=== PATIENT | female | born 1940 | race Caucasian/White ===

== ENCOUNTER 2017-06-14 18:44 | Inpatient (IN) | payer OTHER ==
[~2017-06-14] VITALS: Ht 165.1 cm; Wt 90.9 kg
[~2017-06-14 18:44] MED LIST: ASPI-1071 PO; ATOR20TA66 PO; DULO-31 PO; METO25TA6 PO; NITR0.4T48 SL; OMEP20TA5 PO; PRAM0.253 PO
[2017-06-14 19:14] LABS: BASOPHILS # (AUTO) 0.1 X10'3 (0-0.2); BASOPHILS % (AUTO) 0.6 % (0-1); EOSINOPHILS # (AUTO) 0.2 X10'3 (0-0.9); EOSINOPHILS % (AUTO) 1.4 % (0-6); HEMATOCRIT 35.2 % (35.0-45.0); HEMOGLOBIN 11.1 g/dl (12.0-16.0); LYMPHOCYTES # (AUTO) 2.3 X10'3 (1.1-4.8); LYMPHOCYTES % (AUTO) 17.8 % (21-51); MEAN CORPUSCULAR HEMOGLOBIN 21.9 PG (27.0-31.0); MEAN CORPUSCULAR HGB CONC 31.6 % (33.0-36.5); MEAN CORPUSCULAR VOLUME 69.1 FL (78-98); MEAN PLATELET VOLUME 7.7 FL (7.4-10.4); MONOCYTES % (AUTO) 7.5 % (2-12); NEUTROPHILS # (AUTO) 9.3 X10'3 (1.8-7.7); NEUTROPHILS % (AUTO) 72.7 % (42-75); PLATELET COUNT 326 X10'3 (140-440); RED CELL DISTRIBUTION WIDTH 18.3 % (11.5-14.5); WHITE BLOOD COUNT 12.8 X10'3 (4.5-11.0)
[2017-06-14 19:25] LABS: PARTIAL THROMBOPLASTIN TIME 25 SECONDS (22-32); PROTHROMBIN TIME 9.9 SECONDS (9.0-12.0)
[2017-06-14 19:29] LABS: ALANINE AMINOTRANSFERASE 13 U/L (12-78); ALBUMIN 2.9 G/DL (3.4-5.0); ALBUMIN/GLOBULIN RATIO 0.7 (1.1-1.5); ALKALINE PHOSPHATASE 78 IU/L (46-116); ANION GAP 7 (8-16); ASPARTATE AMINO TRANSFERASE 16 U/L (10-37); BILIRUBIN,TOTAL 0.4 MG/DL (0.1-1.0); BLOOD UREA NITROGEN 17 MG/DL (7-18); BUN/CREATININE RATIO 17.3 (6.6-38.0); CALCIUM 9.3 MG/DL (8.5-10.1); CHLORIDE 101 MMOL/L (99-107); CREATININE 0.98 MG/DL (0.40-0.90); GLUCOSE 123 MG/DL (70-104); POTASSIUM 4.2 MMOL/L (3.5-5.1); SODIUM 140 MMOL/L (135-145); TOTAL CARBON DIOXIDE 32.4 MMOL/L (24-32); TOTAL PROTEIN 6.9 G/DL (6.4-8.2); eGFR 55 ML/MIN
[2017-06-14] MEDS ORDERED: mag hydrox/Alum hydrox/simeth 30ml oral suspension PO ONE (19:50)
[2017-06-14] MEDS ORDERED: LIDOcaine Viscous 15ml cup MM PRN (19:50)
[2017-06-14] MEDS ORDERED: sucralfate 1gm/10ml UD suspension PO SCH (19:50)
[2017-06-14] MEDS ORDERED: sucralfate 1gm/10ml UD suspension PO ONE (19:50)
[2017-06-14] MEDS ORDERED: ALBU8.5H8 INH (20:11)
[2017-06-14] MEDS ORDERED: TRAZ-143 PO (20:11)
[2017-06-14 20:13] LABS: ANISOCYTOSIS 2+; MICROCYTOSIS 2+; PLATELET ESTIMATE NORMAL
[2017-06-14 20:14] LABS: ELLIPTOCYTES 1+; TARGET CELLS FEW
[2017-06-14] MEDS ORDERED: ondansetron/PF 4mg/2ml inj IV PRN (21:15)
[2017-06-14] MEDS ORDERED: acetaminophen 325mg tablet PO PRN (21:15)
[2017-06-14] MEDS ORDERED: mag hydrox/Alum hydrox/simeth 30ml oral suspension PO PRN (21:15)
[2017-06-14] MEDS ORDERED: magnesium hydroxide 30ml (MOM) UD suspension PO PRN (21:15)
[2017-06-14] MEDS: normal saline 1000ml 1,000 ML IV SCH ×2 (21:34→23:14)
[2017-06-14] MEDS ORDERED: traZODone 50mg tablet PO ONE (22:40)
[2017-06-14] MEDS ORDERED: pramipexole 0.25mg tablet PO ONE (22:40)
[2017-06-15] VITALS: BP 120/75
[2017-06-15 02:01] LABS: CLARITY,URINE CLEAR (Clear); COLOR,URINE YELLOW (Yellow); GLUCOSE, URINE NEGATIVE (Neg); KETONES,URINE NEGATIVE (Neg); LEUKOCYTE ESTERASE ,URINE NEGATIVE (Neg); NITRITES, URINE NEGATIVE (Neg); OCCULT BLOOD,URINE NEGATIVE (Neg); PROTEIN,URINE NEGATIVE (Neg); UROBILINOGEN,URINE 0.2 E.U/dL (0.2-1.0)
[2017-06-15 02:02] LABS: UA COLLECTION TYPE VOIDED
[2017-06-15 02:14] LABS: ALANINE AMINOTRANSFERASE 11 U/L (12-78); ALBUMIN/GLOBULIN RATIO 0.7 (1.1-1.5); ALKALINE PHOSPHATASE 80 IU/L (46-116); ANION GAP 9 (8-16); ASPARTATE AMINO TRANSFERASE 19 U/L (10-37); BILIRUBIN,TOTAL 0.4 MG/DL (0.1-1.0); BLOOD UREA NITROGEN 15 MG/DL (7-18); BUN/CREATININE RATIO 16.1 (6.6-38.0); CALCIUM 9.5 MG/DL (8.5-10.1); CHLORIDE 103 MMOL/L (99-107); CREATININE 0.93 MG/DL (0.40-0.90); GLUCOSE 114 MG/DL (70-104); POTASSIUM 4.5 MMOL/L (3.5-5.1); SODIUM 140 MMOL/L (135-145); TOTAL CARBON DIOXIDE 27.6 MMOL/L (24-32); TOTAL PROTEIN 7.1 G/DL (6.4-8.2); eGFR 58 ML/MIN
[2017-06-15 07:01] LABS: BASOPHILS # (AUTO) 0.1 X10'3 (0-0.2); BASOPHILS % (AUTO) 0.9 % (0-1); EOSINOPHILS # (AUTO) 0.4 X10'3 (0-0.9); EOSINOPHILS % (AUTO) 3.6 % (0-6); HEMATOCRIT 35.3 % (35.0-45.0); HEMOGLOBIN 11.4 g/dl (12.0-16.0); LYMPHOCYTES # (AUTO) 2.1 X10'3 (1.1-4.8); LYMPHOCYTES % (AUTO) 20.1 % (21-51); MEAN CORPUSCULAR HEMOGLOBIN 21.9 PG (27.0-31.0); MEAN CORPUSCULAR HGB CONC 32.2 % (33.0-36.5); MEAN PLATELET VOLUME 8.1 FL (7.4-10.4); MONOCYTES # (AUTO) 0.8 X10'3 (0-0.9); MONOCYTES % (AUTO) 7.9 % (2-12); NEUTROPHILS # (AUTO) 7.1 X10'3 (1.8-7.7); NEUTROPHILS % (AUTO) 67.5 % (42-75); PLATELET COUNT 295 X10'3 (140-440); RED CELL DISTRIBUTION WIDTH 18.3 % (11.5-14.5); WHITE BLOOD COUNT 10.5 X10'3 (4.5-11.0)
[2017-06-15] MEDS: duloxetine 30mg CAPSULE.DR PO SCH (07:55)
[2017-06-15] MEDS: metoprolol tartrate 25mg tablet PO SCH ×2 (07:55→20:41)
[2017-06-15] MEDS: pantoprazole 40mg Tablet.DR PO SCH (07:55)
[2017-06-15] MEDS: heparin, porcine 5000 units/ml vial SQ SCH ×2 (07:56→20:42)
[2017-06-15 08:00] VITALS: BP 136/78
[2017-06-15 08:56] LABS: ANISOCYTOSIS 2+; MICROCYTOSIS 2+; PLATELET ESTIMATE NORMAL
[2017-06-15 09:07] LABS: SCHISTOCYTES FEW
[2017-06-15 11:19] VITALS: BP 128/71
[2017-06-15 20:00] VITALS: BP 129/72
[2017-06-15] MEDS ORDERED: pramipexole 0.25mg tablet PO SCH (21:00)
[2017-06-15] MEDS ORDERED: traZODone 50mg tablet PO SCH (21:00)
[2017-06-15] MEDS: normal saline 1000ml 1,000 ML IV SCH (23:57)
[2017-06-16] VITALS (7 sets, daily range): BP systolic 96–146; BP diastolic 55–82
[2017-06-16 05:42] LABS: BASOPHILS # (AUTO) 0.1 X10'3 (0-0.2); BASOPHILS % (AUTO) 1.1 % (0-1); EOSINOPHILS # (AUTO) 0.5 X10'3 (0-0.9); EOSINOPHILS % (AUTO) 5.1 % (0-6); HEMATOCRIT 34.6 % (35.0-45.0); LYMPHOCYTES # (AUTO) 2.5 X10'3 (1.1-4.8); LYMPHOCYTES % (AUTO) 25.6 % (21-51); MEAN CORPUSCULAR HEMOGLOBIN 21.8 PG (27.0-31.0); MEAN CORPUSCULAR HGB CONC 31.9 % (33.0-36.5); MEAN CORPUSCULAR VOLUME 68.4 FL (78-98); MEAN PLATELET VOLUME 7.9 FL (7.4-10.4); MONOCYTES # (AUTO) 0.8 X10'3 (0-0.9); MONOCYTES % (AUTO) 8.3 % (2-12); NEUTROPHILS # (AUTO) 5.8 X10'3 (1.8-7.7); NEUTROPHILS % (AUTO) 59.9 % (42-75); PLATELET COUNT 275 X10'3 (140-440); RED BLOOD COUNT 5.07 X10'6 (4.20-5.60); RED CELL DISTRIBUTION WIDTH 18.6 % (11.5-14.5); WHITE BLOOD COUNT 9.8 X10'3 (4.5-11.0)
[2017-06-16 06:26] LABS: ALANINE AMINOTRANSFERASE 11 U/L (12-78); ALBUMIN 2.7 G/DL (3.4-5.0); ALBUMIN/GLOBULIN RATIO 0.7 (1.1-1.5); ALKALINE PHOSPHATASE 71 IU/L (46-116); ANION GAP 3 (8-16); ASPARTATE AMINO TRANSFERASE 15 U/L (10-37); BILIRUBIN,TOTAL 0.4 MG/DL (0.1-1.0); BLOOD UREA NITROGEN 14 MG/DL (7-18); BUN/CREATININE RATIO 13.7 (6.6-38.0); CALCIUM 9.1 MG/DL (8.5-10.1); CHLORIDE 107 MMOL/L (99-107); CREATININE 1.02 MG/DL (0.40-0.90); GLUCOSE 94 MG/DL (70-104); POTASSIUM 4.8 MMOL/L (3.5-5.1); SODIUM 142 MMOL/L (135-145); TOTAL CARBON DIOXIDE 32.2 MMOL/L (24-32); TOTAL PROTEIN 6.5 G/DL (6.4-8.2); eGFR 52 ML/MIN
[2017-06-16] MEDS: heparin, porcine 5000 units/ml vial SQ SCH (07:09)
[2017-06-16] MEDS: duloxetine 30mg CAPSULE.DR PO SCH (07:39)
[2017-06-16] MEDS: pantoprazole 40mg Tablet.DR PO SCH (07:39)
[2017-06-16 07:55] LABS: ANISOCYTOSIS 2+; MICROCYTOSIS 2+; PLATELET ESTIMATE NORMAL
[2017-06-16] MEDS ORDERED: metoprolol tartrate 12.5mg (1/2 tablet) PO SCH (08:00)
[2017-06-16] MEDS ORDERED: LIDOcaine Viscous 15ml cup ONE (09:24)
[2017-06-16] MEDS ORDERED: MIDAZolam 5mg/ml 2ml vial ONE (09:24)
[2017-06-16] MEDS ORDERED: fentaNYL/PF 50MCG/1 ML 2ML syringe ONE (09:24)
[2017-06-16] MEDS ORDERED: albuterol 2.5 MG/3 ML nebule NEB PRN (09:40)
[2017-06-16] MEDS ORDERED: simethicone 40mg/0.6ml oral drops 30ml MC ONE (09:55)
[2017-06-16] MEDS ORDERED: MIDAZolam 5mg/5ml vial IV PRN (09:55)
[2017-06-16] MEDS ORDERED: fentaNYL/PF 50MCG/1 ML 2ML syringe IV PRN (09:55)
[2017-06-16] MEDS ORDERED: normal saline 1000ml 1,000 ML IV SCH (09:55)
[2017-06-16] MEDS ORDERED: LIDOcaine Viscous 15ml cup PO ONE (09:55)
[2017-06-16] MEDS ORDERED: LIDOcaine Viscous 15ml cup MM PRN (15:33)
== END 2017-06-16 15:35 | disposition home or self-care (01) | DRG 392 ==
LOC: ER 18:44 → ED HOLD 21:14 → MED 3N 23:12
PROVIDERS: ADMIT Internal Medicine; ATTEND Internal Medicine
PROC: 0D748ZZ Dilation of Esophagogastric Junction, Via Natural or Artificial Opening Endoscopic (ICD-10-PCS; principal; 2017-06-16)
DX: K22.2 Esophageal obstruction (principal); R13.14 Dysphagia, pharyngoesophageal phase; D72.829 Elevated white blood cell count, unspecified; N18.9 Chronic kidney disease, unspecified; K22.4 Dyskinesia of esophagus; I12.9 Hypertensive chronic kidney disease with stage 1 through stage 4 chronic kidney disease, or unspecified chronic kidney disease; K29.70 Gastritis, unspecified, without bleeding; K44.9 Diaphragmatic hernia without obstruction or gangrene; F32.9 Major depressive disorder, single episode, unspecified; F41.9 Anxiety disorder, unspecified; G89.29 Other chronic pain; M19.90 Unspecified osteoarthritis, unspecified site; I25.10 Atherosclerotic heart disease of native coronary artery without angina pectoris; K21.9 Gastro-esophageal reflux disease without esophagitis; E78.00 Pure hypercholesterolemia, unspecified; I25.2 Old myocardial infarction; Z90.710 Acquired absence of both cervix and uterus; Z88.1 Allergy status to other antibiotic agents; Z91.040 Latex allergy status; Z79.82 Long term (current) use of aspirin; Z79.899 Other long term (current) drug therapy; Z85.3 Personal history of malignant neoplasm of breast; Z86.73 Personal history of transient ischemic attack (TIA), and cerebral infarction without residual deficits; Z82.0 Family history of epilepsy and other diseases of the nervous system; Z83.3 Family history of diabetes mellitus; Z82.5 Family history of asthma and other chronic lower respiratory diseases; Z80.3 Family history of malignant neoplasm of breast; Z80.41 Family history of malignant neoplasm of ovary; Z80.42 Family history of malignant neoplasm of prostate
CPT/HCPCS: 36415; 71045; 80053; 81003; 84484; 85025; 85610; 85730; 87070; 93005; 94760; 99285; A4620; A6449; G0500; J1644; J2250; J2405; J3010; J7030

== ENCOUNTER 2017-11-06 18:29 | Inpatient (IN) | payer OTHER ==
[~2017-11-06] VITALS: Ht 165.1 cm; Wt 97.0 kg
[~2017-11-06 18:29] MED LIST changes: +ALBU8.5H8 INH; +TRAZ-143 PO
[2017-11-06 19:00] LABS: INR 0.9 INR; PARTIAL THROMBOPLASTIN TIME 25 SECONDS (22-32); PROTHROMBIN TIME 9.8 SECONDS (9.0-12.0)
[2017-11-06 19:05] LABS: ALANINE AMINOTRANSFERASE 14 U/L (12-78); ALBUMIN 2.8 G/DL (3.4-5.0); ALBUMIN/GLOBULIN RATIO 0.7 (1.1-1.5); ALKALINE PHOSPHATASE 95 IU/L (46-116); ANION GAP 4 (8-16); ASPARTATE AMINO TRANSFERASE 19 U/L (10-37); BILIRUBIN,TOTAL 0.7 MG/DL (0.1-1.0); BLOOD UREA NITROGEN 11 MG/DL (7-18); BUN/CREATININE RATIO 11.5 (6.6-38.0); CALCIUM 9.2 MG/DL (8.5-10.1); CHLORIDE 100 MMOL/L (99-107); CREATININE 0.96 MG/DL (0.40-0.90); GLUCOSE 110 MG/DL (70-104); POTASSIUM 4.5 MMOL/L (3.5-5.1); SODIUM 134 MMOL/L (135-145); TOTAL CARBON DIOXIDE 30.5 MMOL/L (24-32); TOTAL PROTEIN 6.9 G/DL (6.4-8.2); eGFR 56 ML/MIN
[2017-11-06 19:07] LABS: BASOPHILS # (AUTO) 0.1 X10'3 (0-0.2); BASOPHILS % (AUTO) 0.5 % (0-1); EOSINOPHILS # (AUTO) 0.1 X10'3 (0-0.9); EOSINOPHILS % (AUTO) 0.3 % (0-6); HEMOGLOBIN 10.9 g/dl (12.0-16.0); LYMPHOCYTES # (AUTO) 1.9 X10'3 (1.1-4.8); LYMPHOCYTES % (AUTO) 9.4 % (21-51); MEAN CORPUSCULAR HEMOGLOBIN 21.2 PG (27.0-31.0); MEAN CORPUSCULAR HGB CONC 31.1 % (33.0-36.5); MEAN CORPUSCULAR VOLUME 68.2 FL (78-98); MONOCYTES # (AUTO) 1.1 X10'3 (0-0.9); MONOCYTES % (AUTO) 5.2 % (2-12); NEUTROPHILS % (AUTO) 84.6 % (42-75); PLATELET COUNT 335 X10'3 (140-440); RED BLOOD COUNT 5.13 X10'6 (4.20-5.60); RED CELL DISTRIBUTION WIDTH 18.3 % (11.5-14.5); WHITE BLOOD COUNT 20.1 X10'3 (4.5-11.0)
[2017-11-06] MEDS ORDERED: CefTRIAXone 2gm/D5W 50ml 50 ML IV ONE (19:20)
[2017-11-06] MEDS ORDERED: DOXYCYCLINE 100MG CAPSULE PO STA (19:22)
[2017-11-06] MEDS ORDERED: HYDROcodone/acetaminophen 5mg/325mg tablet PO PRN (20:55)
[2017-11-06] MEDS ORDERED: magnesium hydroxide 30ml (MOM) UD suspension PO PRN (20:55)
[2017-11-06] MEDS ORDERED: mag hydrox/Alum hydrox/simeth 30ml oral suspension PO PRN (20:55)
[2017-11-06] MEDS ORDERED: diphenhydrAMINE 50 mg/ml inj IV PRN (20:55)
[2017-11-06] MEDS ORDERED: acetaminophen 325mg tablet PO PRN ×2 (20:55)
[2017-11-06] MEDS ORDERED: bisacodyl 10mg suppository rectal RC PRN (20:55)
[2017-11-06] MEDS ORDERED: acetaminophen 650mg rectal suppository RC PRN (20:55)
[2017-11-06] MEDS ORDERED: morphine 4 MG/ML inj SYRINge IV PRN ×2 (20:55)
[2017-11-06] MEDS ORDERED: ondansetron/PF 4mg/2ml inj IV PRN (20:55)
[2017-11-06] MEDS ORDERED: diphenhydrAMINE 25mg capsule PO PRN (20:55)
[2017-11-06] MEDS ORDERED: HYDROmorphone inj. 0.5 MG/0.5 ML DISP.SYRIN IV PRN ×2 (20:55)
[2017-11-06] MEDS ORDERED: metoclopramide 5 mg/ml inj IV PRN (20:55)
[2017-11-06] MEDS ORDERED: temazepam 15mg capsule PO PRN (21:00)
[2017-11-06] MEDS: normal saline 1000ml 1,000 ML IV SCH ×2 (21:07→23:27)
[2017-11-06 21:10] LABS: CLARITY,URINE Clear (Clear); COLOR,URINE Yellow (Yellow); GLUCOSE, URINE Negative (Neg); KETONES,URINE Negative (Neg); LEUKOCYTE ESTERASE ,URINE Trace (Neg); NITRITES, URINE Negative (Neg); OCCULT BLOOD,URINE Negative (Neg); PH,URINE 6.5 (4.8-8.0); PROTEIN,URINE Negative (Neg)
[2017-11-06] MEDS ORDERED: PRAM0.253 PO (21:12)
[2017-11-06] MEDS ORDERED: ATOR40TA PO (21:12)
[2017-11-06] MEDS ORDERED: ASPI-1265 PO (21:12)
[2017-11-06 21:17] LABS: UA COLLECTION TYPE CLN CATCH MIDSTREAM
[2017-11-06 21:18] LABS: BACTERIA,URINE NONE SEEN /HPF (Neg); RBC,URINE NONE SEEN /HPF (0-2); SQUAMOUS EPITHELIAL CELL,UR FEW /LPF (FEW); WBC,URINE 0-4 /HPF (0-4)
[2017-11-06] MEDS ORDERED: non-formulary drug (Albuterol Sulfate (Proair Hfa) 2 PUFFS) INH SCH (21:25)
[2017-11-06] MEDS ORDERED: albuterol 2.5 MG/3 ML nebule NEB PRN (21:30)
[2017-11-06 21:40] VITALS: BP 128/83
[2017-11-06] MEDS ORDERED: regadenoson 0.4mg/5ml syringe IV PRN (21:40)
[2017-11-06] MEDS ORDERED: nitroGLYCERIN 0.4mg SUBLingual tab SL PRN (21:40)
[2017-11-06] MEDS ORDERED: CAFFEINE CITRATE 60 MG/3 ML injection vial IV PRN (21:40)
[2017-11-06] MEDS ORDERED: metoprolol tartrate 1mg/ml inj IV PRN (21:40)
[2017-11-06] MEDS: traZODone 50mg tablet PO SCH (23:17)
[2017-11-06] MEDS: pramipexole 0.25mg tablet PO SCH (23:17)
[2017-11-07] VITALS (14 sets, daily range): BP systolic 75–127; BP diastolic 39–67
[2017-11-07 01:53] LABS: ALANINE AMINOTRANSFERASE 16 U/L (12-78); ALBUMIN 2.7 G/DL (3.4-5.0); ALBUMIN/GLOBULIN RATIO 0.7 (1.1-1.5); ALKALINE PHOSPHATASE 86 IU/L (46-116); ANION GAP 3 (8-16); ASPARTATE AMINO TRANSFERASE 15 U/L (10-37); BILIRUBIN,TOTAL 0.4 MG/DL (0.1-1.0); BLOOD UREA NITROGEN 12 MG/DL (7-18); BUN/CREATININE RATIO 11.5 (6.6-38.0); CALCIUM 8.7 MG/DL (8.5-10.1); CHLORIDE 102 MMOL/L (99-107); CREATININE 1.04 MG/DL (0.40-0.90); GLUCOSE 116 MG/DL (70-104); POTASSIUM 3.8 MMOL/L (3.5-5.1); SODIUM 137 MMOL/L (135-145); TOTAL CARBON DIOXIDE 31.9 MMOL/L (24-32); TOTAL PROTEIN 6.6 G/DL (6.4-8.2); eGFR 51 ML/MIN
[2017-11-07 07:11] LABS: BASOPHILS # (AUTO) 0.1 X10'3 (0-0.2); BASOPHILS % (AUTO) 1.2 % (0-1); EOSINOPHILS # (AUTO) 0.3 X10'3 (0-0.9); EOSINOPHILS % (AUTO) 2.7 % (0-6); HEMOGLOBIN 10.6 g/dl (12.0-16.0); LYMPHOCYTES # (AUTO) 1.7 X10'3 (1.1-4.8); LYMPHOCYTES % (AUTO) 16.7 % (21-51); MEAN CORPUSCULAR HEMOGLOBIN 20.9 PG (27.0-31.0); MEAN CORPUSCULAR HGB CONC 30.2 % (33.0-36.5); MEAN CORPUSCULAR VOLUME 69.2 FL (78-98); MEAN PLATELET VOLUME 7.9 FL (7.4-10.4); MONOCYTES % (AUTO) 10.2 % (2-12); NEUTROPHILS # (AUTO) 7.1 X10'3 (1.8-7.7); NEUTROPHILS % (AUTO) 69.2 % (42-75); PLATELET COUNT 293 X10'3 (140-440); RED BLOOD COUNT 5.06 X10'6 (4.20-5.60); RED CELL DISTRIBUTION WIDTH 18.6 % (11.5-14.5); WHITE BLOOD COUNT 10.2 X10'3 (4.5-11.0)
[2017-11-07] MEDS: metoprolol tartrate 12.5mg (1/2 tablet) PO SCH ×2 (07:30→21:25)
[2017-11-07] MEDS: duloxetine 30mg CAPSULE.DR PO SCH (07:35)
[2017-11-07] MEDS: pantoprazole 40mg Tablet.DR PO SCH (07:36)
[2017-11-07] MEDS: aspirin 81mg tab.chew PO SCH (07:36)
[2017-11-07] MEDS: docusate sod 100mg capsule PO SCH ×2 (07:36→21:27)
[2017-11-07] MEDS: atorvastatin 20mg tablet PO SCH (07:37)
[2017-11-07] MEDS: heparin, porcine 5000 units/ml vial SQ SCH ×2 (07:41→21:22)
[2017-11-07 07:48] LABS: PLATELET ESTIMATE NORMAL
[2017-11-07 07:49] LABS: ANISOCYTOSIS 2+; ELLIPTOCYTES FEW; HYPOCHROMASIA 2+; MICROCYTOSIS 2+; POLYCHROMASIA 1+
[2017-11-07] MEDS ORDERED: methylPREDNISolone sod succ 125mg/2ml vial IV SCH (08:00)
[2017-11-07] MEDS ORDERED: CefTRIAXone/D5W-Rocephin 1gm 50 ML IV SCH (08:00)
[2017-11-07] MEDS ORDERED: non-formulary drug (Atorvastatin Calcium* (Lipitor*) 1 TAB) PO SCH (08:00)
[2017-11-07] MEDS: azithromycin/NS 500mg/250ml 250 ML IV SCH (10:07)
[2017-11-07] MEDS: normal saline 1000ml 1,000 ML IV SCH (10:09)
[2017-11-07] MEDS ORDERED: ipratropium/albuterol 3ml nebule NEB PRN (10:35)
[2017-11-07] MEDS: ipratropium/albuterol 3ml nebule NEB SCH ×3 (11:00→19:18)
[2017-11-07] MEDS ORDERED: regadenoson 0.4mg/5ml syringe IV ONE (11:05)
[2017-11-07] MEDS ORDERED: CAFFEINE CITRATE 60 MG/3 ML injection vial IV ONE (11:05)
[2017-11-07] MEDS: methylPREDNISolone sod succ 125mg/2ml vial IV SCH ×2 (15:12→21:25)
[2017-11-07] MEDS: traZODone 50mg tablet PO SCH (21:26)
[2017-11-07] MEDS: pramipexole 0.25mg tablet PO SCH (21:26)
[2017-11-07] MEDS: lactobacillus rhamnosus 10,000 MMU CELLS/CAPSULE PO SCH (21:26)
[2017-11-08] VITALS: BP 111/59
[2017-11-08] MEDS: HYDROcodone/acetaminophen 10/325mg tab PO PRN ×2 (01:10→06:07)
[2017-11-08] MEDS: methylPREDNISolone sod succ 125mg/2ml vial IV SCH ×2 (02:55→08:12)
[2017-11-08] MEDS: normal saline 1000ml 1,000 ML IV SCH (02:58)
[2017-11-08 05:36] LABS: BASOPHILS % (AUTO) 0.1 % (0-1); EOSINOPHILS % (AUTO) 0 % (0-6); HEMATOCRIT 30.9 % (35.0-45.0); HEMOGLOBIN 9.5 g/dl (12.0-16.0); LYMPHOCYTES # (AUTO) 0.9 X10'3 (1.1-4.8); LYMPHOCYTES % (AUTO) 7.4 % (21-51); MEAN CORPUSCULAR HEMOGLOBIN 21.1 PG (27.0-31.0); MEAN CORPUSCULAR HGB CONC 30.7 % (33.0-36.5); MEAN CORPUSCULAR VOLUME 68.6 FL (78-98); MEAN PLATELET VOLUME 8.2 FL (7.4-10.4); MONOCYTES # (AUTO) 0.3 X10'3 (0-0.9); MONOCYTES % (AUTO) 2.5 % (2-12); NEUTROPHILS # (AUTO) 10.4 X10'3 (1.8-7.7); PLATELET COUNT 272 X10'3 (140-440); RED CELL DISTRIBUTION WIDTH 18.3 % (11.5-14.5); WHITE BLOOD COUNT 11.5 X10'3 (4.5-11.0)
[2017-11-08 06:41] LABS: ALANINE AMINOTRANSFERASE 13 U/L (12-78); ALBUMIN 2.4 G/DL (3.4-5.0); ALBUMIN/GLOBULIN RATIO 0.6 (1.1-1.5); ALKALINE PHOSPHATASE 72 IU/L (46-116); ANION GAP 8 (8-16); ASPARTATE AMINO TRANSFERASE 11 U/L (10-37); BILIRUBIN,TOTAL 0.3 MG/DL (0.1-1.0); BLOOD UREA NITROGEN 20 MG/DL (7-18); BUN/CREATININE RATIO 21.1 (6.6-38.0); CALCIUM 8.8 MG/DL (8.5-10.1); CHLORIDE 105 MMOL/L (99-107); CREATININE 0.95 MG/DL (0.40-0.90); GLUCOSE 151 MG/DL (70-104); POTASSIUM 4.4 MMOL/L (3.5-5.1); SODIUM 139 MMOL/L (135-145); TOTAL CARBON DIOXIDE 26.3 MMOL/L (24-32); TOTAL PROTEIN 6.1 G/DL (6.4-8.2); eGFR 57 ML/MIN
[2017-11-08] MEDS: ipratropium/albuterol 3ml nebule NEB SCH ×5 (07:00→19:40)
[2017-11-08 08:00] VITALS: BP 115/49
[2017-11-08] MEDS: heparin, porcine 5000 units/ml vial SQ SCH ×2 (08:14→20:05)
[2017-11-08] MEDS: lactobacillus rhamnosus 10,000 MMU CELLS/CAPSULE PO SCH ×2 (08:14→20:05)
[2017-11-08] MEDS: metoprolol tartrate 12.5mg (1/2 tablet) PO SCH ×2 (08:14→20:06)
[2017-11-08] MEDS: pantoprazole 40mg Tablet.DR PO SCH (08:14)
[2017-11-08] MEDS: CefTRIAXone/D5W-Rocephin 1gm 50 ML IV SCH (08:15)
[2017-11-08] MEDS: atorvastatin 20mg tablet PO SCH (08:15)
[2017-11-08] MEDS: duloxetine 30mg CAPSULE.DR PO SCH (08:15)
[2017-11-08] MEDS: aspirin 81mg tab.chew PO SCH (08:15)
[2017-11-08] MEDS: docusate sod 100mg capsule PO SCH ×2 (08:18→20:06)
[2017-11-08 08:23] LABS: ANISOCYTOSIS 2+; LARGE PLATELETS FEW; MICROCYTOSIS 2+; PLATELET ESTIMATE NORMAL; POLYCHROMASIA 1+
[2017-11-08] MEDS: azithromycin/NS 500mg/250ml 250 ML IV SCH (09:44)
[2017-11-08] MEDS ORDERED: furosemide 40mg/4ml inj IV ONE (11:20)
[2017-11-08 12:00] VITALS: BP 132/51
[2017-11-08] MEDS: predniSONE 20 mg tablet PO SCH (15:48)
[2017-11-08] MEDS: traZODone 50mg tablet PO SCH (20:05)
[2017-11-08] MEDS ORDERED: pramipexole 0.25mg tablet PO SCH (21:00)
[2017-11-09] VITALS: BP 136/56
[2017-11-09] MEDS ORDERED: benzocaine/menthol oral lozeng 1 EACH BOX MM PRN (04:20)
[2017-11-09 05:44] LABS: BASOPHILS % (AUTO) 0.1 % (0-1); EOSINOPHILS % (AUTO) 0 % (0-6); HEMATOCRIT 31.2 % (35.0-45.0); HEMOGLOBIN 9.8 g/dl (12.0-16.0); LYMPHOCYTES # (AUTO) 0.8 X10'3 (1.1-4.8); LYMPHOCYTES % (AUTO) 5.5 % (21-51); MEAN CORPUSCULAR HEMOGLOBIN 21.2 PG (27.0-31.0); MEAN CORPUSCULAR HGB CONC 31.4 % (33.0-36.5); MEAN CORPUSCULAR VOLUME 67.5 FL (78-98); MEAN PLATELET VOLUME 8.2 FL (7.4-10.4); MONOCYTES # (AUTO) 0.9 X10'3 (0-0.9); MONOCYTES % (AUTO) 5.6 % (2-12); NEUTROPHILS # (AUTO) 13.6 X10'3 (1.8-7.7); NEUTROPHILS % (AUTO) 88.8 % (42-75); PLATELET COUNT 306 X10'3 (140-440); RED BLOOD COUNT 4.62 X10'6 (4.20-5.60); WHITE BLOOD COUNT 15.4 X10'3 (4.5-11.0)
[2017-11-09 06:00] LABS: ALANINE AMINOTRANSFERASE 14 U/L (12-78); ALBUMIN 2.5 G/DL (3.4-5.0); ALBUMIN/GLOBULIN RATIO 0.7 (1.1-1.5); ALKALINE PHOSPHATASE 70 IU/L (46-116); ANION GAP 8 (8-16); ASPARTATE AMINO TRANSFERASE 10 U/L (10-37); BILIRUBIN,TOTAL 0.2 MG/DL (0.1-1.0); BLOOD UREA NITROGEN 21 MG/DL (7-18); BUN/CREATININE RATIO 19.6 (6.6-38.0); CALCIUM 9.2 MG/DL (8.5-10.1); CHLORIDE 106 MMOL/L (99-107); CREATININE 1.07 MG/DL (0.40-0.90); GLUCOSE 121 MG/DL (70-104); SODIUM 142 MMOL/L (135-145); TOTAL CARBON DIOXIDE 28.4 MMOL/L (24-32); TOTAL PROTEIN 6.2 G/DL (6.4-8.2); eGFR 49 ML/MIN
[2017-11-09 06:56] LABS: ANISOCYTOSIS 2+; MICROCYTOSIS 2+; PLATELET ESTIMATE NORMAL
[2017-11-09 07:00] VITALS: BP 133/67
[2017-11-09] MEDS: pantoprazole 40mg Tablet.DR PO SCH (07:05)
[2017-11-09] MEDS ORDERED: azithromycin 250mg tablet PO SCH (08:00)
[2017-11-09] MEDS: metoprolol tartrate 12.5mg (1/2 tablet) PO SCH (08:22)
[2017-11-09] MEDS: lactobacillus rhamnosus 10,000 MMU CELLS/CAPSULE PO SCH (08:22)
[2017-11-09] MEDS: duloxetine 30mg CAPSULE.DR PO SCH (08:22)
[2017-11-09] MEDS: aspirin 81mg tab.chew PO SCH (08:22)
[2017-11-09] MEDS: docusate sod 100mg capsule PO SCH (08:23)
[2017-11-09] MEDS: predniSONE 20 mg tablet PO SCH (08:23)
[2017-11-09] MEDS: atorvastatin 20mg tablet PO SCH (08:23)
[2017-11-09] MEDS: ipratropium/albuterol 3ml nebule NEB SCH ×2 (08:25→11:26)
[2017-11-09] MEDS: CefTRIAXone/D5W-Rocephin 1gm 50 ML IV SCH (08:27)
[2017-11-09] MEDS: heparin, porcine 5000 units/ml vial SQ SCH (08:36)
[2017-11-09] MEDS ORDERED: PRED20TA PO (10:58)
[2017-11-09] MEDS ORDERED: AMOX-422 PO (10:58)
== END 2017-11-09 13:44 | disposition home health service (06) | DRG 871 ==
LOC: ER 18:30 → ED HOLD 20:52 → SUR 3N 21:35
PROVIDERS: ADMIT Family Medicine; ATTEND Family Medicine
PROC: 4A02XM4 Measurement of Cardiac Total Activity, External Approach (ICD-10-PCS; principal; 2017-11-07)
PROC: 3E073KZ Introduction of Other Diagnostic Substance into Coronary Artery, Percutaneous Approach (ICD-10-PCS; 2017-11-07)
DX: A41.9 Sepsis, unspecified organism (principal); J18.9 Pneumonia, unspecified organism; J44.0 Chronic obstructive pulmonary disease with (acute) lower respiratory infection; E87.1 Hypo-osmolality and hyponatremia; J44.1 Chronic obstructive pulmonary disease with (acute) exacerbation; D64.9 Anemia, unspecified; E78.00 Pure hypercholesterolemia, unspecified; E78.5 Hyperlipidemia, unspecified; E86.0 Dehydration; F41.9 Anxiety disorder, unspecified; I12.9 Hypertensive chronic kidney disease with stage 1 through stage 4 chronic kidney disease, or unspecified chronic kidney disease; K21.9 Gastro-esophageal reflux disease without esophagitis; I25.119 Atherosclerotic heart disease of native coronary artery with unspecified angina pectoris; F32.9 Major depressive disorder, single episode, unspecified; G89.29 Other chronic pain; M19.90 Unspecified osteoarthritis, unspecified site; N18.9 Chronic kidney disease, unspecified; R07.89 Other chest pain; R09.02 Hypoxemia; Z72.0 Tobacco use; I25.2 Old myocardial infarction; Z90.710 Acquired absence of both cervix and uterus; Z99.81 Dependence on supplemental oxygen; Z88.1 Allergy status to other antibiotic agents; Z91.040 Latex allergy status; Z79.82 Long term (current) use of aspirin; Z79.899 Other long term (current) drug therapy; Z85.3 Personal history of malignant neoplasm of breast; Z86.73 Personal history of transient ischemic attack (TIA), and cerebral infarction without residual deficits; Z83.3 Family history of diabetes mellitus; Z80.3 Family history of malignant neoplasm of breast; Z80.41 Family history of malignant neoplasm of ovary; Z80.42 Family history of malignant neoplasm of prostate; Z82.5 Family history of asthma and other chronic lower respiratory diseases
CPT/HCPCS: 36415; 71045; 78452; 80053; 81001; 83605; 83735; 83880; 84145; 84443; 84484; 85025; 85379; 85610; 85730; 87040; 87070; 87088; 93005; 93017; 93306; 94640; 94760; 96365; 97116; 97161; 97530; 99285; A6258; A9500; J0456; J0696; J1644; J1940; J2270; J2785; J2930; J7030; J7512

== ENCOUNTER 2018-02-21 00:07 | Inpatient (IN) | payer OTHER ==
[~2018-02-21] VITALS: Ht 165.1 cm; Wt 97.2 kg
[~2018-02-21 00:07] MED LIST changes: -ASPI-1071 PO; +ASPI-1265 PO; -ATOR20TA66 PO; +ATOR40TA PO; -NITR0.4T48 SL; +PRED20TA PO; -TRAZ-143 PO; +TRAZ-218 PO
[2018-02-21] MEDS ORDERED: ondansetron/PF 4mg/2ml inj IV ONE (01:15)
[2018-02-21] MEDS ORDERED: normal saline 1000ML IV soln IVB ONE (01:15)
[2018-02-21 01:25] LABS: ALANINE AMINOTRANSFERASE 15 U/L (12-78); ALBUMIN 2.8 G/DL (3.4-5.0); ALBUMIN/GLOBULIN RATIO 0.8 (1.1-1.5); ALKALINE PHOSPHATASE 79 IU/L (46-116); ANION GAP 6 (8-16); ASPARTATE AMINO TRANSFERASE 16 U/L (10-37); BASOPHILS # (AUTO) 0.1 X10'3 (0-0.2); BASOPHILS % (AUTO) 1.1 % (0-1); BILIRUBIN,TOTAL 0.5 MG/DL (0.1-1.0); BLOOD UREA NITROGEN 11 MG/DL (7-18); BUN/CREATININE RATIO 11.6 (6.6-38.0); CALCIUM 9.4 MG/DL (8.5-10.1); CHLORIDE 105 MMOL/L (99-107); CREATININE 0.95 MG/DL (0.40-0.90); EOSINOPHILS # (AUTO) 0.3 X10'3 (0-0.9); EOSINOPHILS % (AUTO) 2.8 % (0-6); GLUCOSE 115 MG/DL (70-104); HEMATOCRIT 34.5 % (35.0-45.0); HEMOGLOBIN 10.5 g/dl (12.0-16.0); LYMPHOCYTES # (AUTO) 1.7 X10'3 (1.1-4.8); LYMPHOCYTES % (AUTO) 14.7 % (21-51); MEAN CORPUSCULAR HEMOGLOBIN 20.8 PG (27.0-31.0); MEAN CORPUSCULAR HGB CONC 30.5 % (33.0-36.5); MEAN CORPUSCULAR VOLUME 68.2 FL (78-98); MEAN PLATELET VOLUME 8.5 FL (7.4-10.4); MONOCYTES # (AUTO) 0.8 X10'3 (0-0.9); MONOCYTES % (AUTO) 7.1 % (2-12); NEUTROPHILS # (AUTO) 8.9 X10'3 (1.8-7.7); NEUTROPHILS % (AUTO) 74.3 % (42-75); PLATELET COUNT 306 X10'3 (140-440); POTASSIUM 3.6 MMOL/L (3.5-5.1); RED BLOOD COUNT 5.06 X10'6 (4.20-5.60); RED CELL DISTRIBUTION WIDTH 16.2 % (11.5-14.5); SODIUM 142 MMOL/L (135-145); TOTAL CARBON DIOXIDE 30.7 MMOL/L (24-32); TOTAL PROTEIN 6.3 G/DL (6.4-8.2); WHITE BLOOD COUNT 11.8 X10'3 (4.5-11.0); eGFR 57 ML/MIN
[2018-02-21 01:31] LABS: LIPASE 120 U/L (73-393); MAGNESIUM 1.4 MG/DL (1.5-2.4)
[2018-02-21] MEDS ORDERED: famotidine/PF 10 mg/ml inj IV ONE (02:05)
[2018-02-21] MEDS ORDERED: nitroGLYCERIN 0.4mg SUBLingual tab SL PRN ×2 (02:05→04:15)
[2018-02-21] MEDS ORDERED: pantoprazole 40 MG vial IV ONE (02:05)
[2018-02-21] MEDS ORDERED: aspirin 81mg tab.chew PO ONE (02:05)
[2018-02-21] MEDS ORDERED: normal saline 1000ml 1,000 ML IV SCH (04:11)
[2018-02-21] MEDS ORDERED: diphenhydrAMINE 25mg capsule PO PRN (04:15)
[2018-02-21] MEDS ORDERED: aminophylline 250mg/10ml inj. IV PRN (04:15)
[2018-02-21] MEDS ORDERED: potassium Cl 20 mEq SR tablet PO PRN ×4 (04:15→05:35)
[2018-02-21] MEDS ORDERED: acetaminophen 325mg tablet PO PRN ×2 (04:15)
[2018-02-21] MEDS ORDERED: diphenhydrAMINE 50 mg/ml inj IV PRN (04:15)
[2018-02-21] MEDS ORDERED: HYDROmorphone 1 mg/ml syringe IV PRN ×2 (04:15)
[2018-02-21] MEDS ORDERED: magnesium hydroxide 30ml (MOM) UD suspension PO PRN (04:15)
[2018-02-21] MEDS ORDERED: HYDROcodone/acetaminophen 10/325mg tab PO PRN (04:15)
[2018-02-21] MEDS ORDERED: bisacodyl 10mg suppository rectal RC PRN (04:15)
[2018-02-21] MEDS ORDERED: metoprolol tartrate 1mg/ml inj IV PRN (04:15)
[2018-02-21] MEDS ORDERED: ondansetron/PF 4mg/2ml inj IV PRN (04:15)
[2018-02-21] MEDS ORDERED: albuterol 2.5 MG/3 ML nebule NEB PRN (04:15)
[2018-02-21] MEDS ORDERED: morphine 2 MG/ML inj. syringe IV PRN ×2 (04:15)
[2018-02-21] MEDS ORDERED: metoclopramide 5 mg/ml inj IV PRN (04:15)
[2018-02-21] MEDS ORDERED: HYDROcodone/acetaminophen 5mg/325mg tablet PO PRN (04:15)
[2018-02-21] MEDS ORDERED: regadenoson 0.4mg/5ml syringe IV ONE ×2 (04:15→04:45)
[2018-02-21] MEDS ORDERED: potassium Cl 40MEQ/NS 500ml 500 ML IV PRN ×4 (04:15→05:35)
[2018-02-21] MEDS ORDERED: mag hydrox/Alum hydrox/simeth 30ml oral suspension PO PRN (04:15)
[2018-02-21] MEDS ORDERED: acetaminophen 650mg rectal suppository RC PRN (04:15)
[2018-02-21 05:18] LABS: D-DIMER 0.77 MG/L FEU (0-0.50)
[2018-02-21 05:30] VITALS: BP 143/76
[2018-02-21] MEDS ORDERED: magnesium 4gm in 100ml NS 100 ML IV PRN (05:35)
[2018-02-21] MEDS ORDERED: magnesium 1gm/100ml D5W IVPB 100 ML IV PRN (05:35)
[2018-02-21] MEDS ORDERED: magnesium Cl slow-release 64mg tablet PO PRN (05:35)
[2018-02-21 06:00] VITALS: BP 143/76
[2018-02-21] MEDS ORDERED: atorvastatin 20mg tablet PO SCH (07:30)
[2018-02-21] MEDS ORDERED: pantoprazole 40mg Tablet.DR PO SCH (07:30)
[2018-02-21] MEDS ORDERED: metoprolol tartrate 12.5mg (1/2 tablet) PO SCH (08:00)
[2018-02-21] MEDS ORDERED: duloxetine 30mg CAPSULE.DR PO SCH (08:00)
[2018-02-21] MEDS ORDERED: docusate sod 100mg capsule PO SCH (08:00)
[2018-02-21] MEDS ORDERED: nitroGLYCERIN 0.1mg/hour patch TD SCH (08:00)
[2018-02-21] MEDS ORDERED: aspirin 81mg tab.chew PO SCH (08:00)
[2018-02-21 08:55] VITALS: BP 117/67
[2018-02-21 10:00] VITALS: BP 104/57
[2018-02-21] MEDS ORDERED: temazepam 15mg capsule PO PRN (21:00)
[2018-02-21] MEDS ORDERED: traZODone 50mg tablet PO SCH (21:00)
[2018-02-21] MEDS ORDERED: pramipexole 0.25mg tablet PO SCH (21:00)
== END 2018-02-21 13:18 | disposition home or self-care (01) | DRG 392 ==
LOC: ER 00:07 → ED HOLD 04:11 → ORTHO 4S 05:26
PROVIDERS: ADMIT Family Medicine; ATTEND Internal Medicine
DX: K22.2 Esophageal obstruction (principal); D64.9 Anemia, unspecified; E78.00 Pure hypercholesterolemia, unspecified; E78.5 Hyperlipidemia, unspecified; E83.42 Hypomagnesemia; F32.9 Major depressive disorder, single episode, unspecified; F41.9 Anxiety disorder, unspecified; G89.29 Other chronic pain; M19.90 Unspecified osteoarthritis, unspecified site; K21.9 Gastro-esophageal reflux disease without esophagitis; I10 Essential (primary) hypertension; I73.9 Peripheral vascular disease, unspecified; K44.9 Diaphragmatic hernia without obstruction or gangrene; K22.4 Dyskinesia of esophagus; I25.10 Atherosclerotic heart disease of native coronary artery without angina pectoris; I25.2 Old myocardial infarction; Z90.13 Acquired absence of bilateral breasts and nipples; Z90.710 Acquired absence of both cervix and uterus; Z88.1 Allergy status to other antibiotic agents; Z91.040 Latex allergy status; Z79.899 Other long term (current) drug therapy; Z79.82 Long term (current) use of aspirin; Z86.73 Personal history of transient ischemic attack (TIA), and cerebral infarction without residual deficits; Z87.891 Personal history of nicotine dependence; Z85.3 Personal history of malignant neoplasm of breast; Z80.3 Family history of malignant neoplasm of breast; Z82.5 Family history of asthma and other chronic lower respiratory diseases; Z80.41 Family history of malignant neoplasm of ovary; Z80.42 Family history of malignant neoplasm of prostate
CPT/HCPCS: 36415; 71045; 80053; 83690; 83735; 83880; 84100; 84443; 84484; 85025; 85379; 87070; 93005; 96374; 96375; 99285; C9113; G0378; J0280; J2405; J3490; J7030